=== PATIENT | male | born 1975 | race Caucasian/White ===

== ENCOUNTER → 2017-06-18 | Outpatient (CLI) | payer OTHER ==
[~2017-06-18] VITALS: Ht 195.6 cm; Wt 140.6 kg
[~2017-06-18] MED LIST: ADDERALL 10 MG10 MG PO; CRESTOR10 MG PO; DEPO-TESTO200 MG/1 M IM; ZESTORETIC 20-1 EAC3 PO
--- NOTE | ~2017-06-18 | HPC ---
[facility] [place] [address] PAIN MANAGEMENT CONSULTATION Name: HAYDEE REA Room #: [facility] Laya.#: [id number] Admission: 06/18/17 Attend Phys: Theo Garcia DO Discharge: Date of : 79 Report #: [id number] THIS REPORT FOR: //name// CC: [facility] physician/PCP Theo Garcia The patient is a 42-year-old gentleman typically treated for symptomatic lumbar radiculopathy. Last seen in pain clinic back in [facility] on 03/10/2017. The patient has actually had 3 lumbar epidural injections in February, March and April, all with good incremental improvement, in fact the first injection gave nearly 100% relief, but pain continued to recur. Last injection afforded 75% relief (05/06/2017) and pain has recurred again is in the right low back, posterior leg down to the toe. Classic L5 distribution. 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 The patient tentatively has a surgery scheduled with Dr. August Shields on 07/31/2017 for decompressive laminectomy at L5-S1. He returns to the pain clinic today ostensibly for lumbar epidural injection. He is planning on a golf weekend with clients. He states he tried to play golf last week and only got around 6 holes before pain became problematic. Rates the pain of 5 on VAS at present. PHYSICAL EXAMINATION: Shows 42-year-old gentleman robust build 195 cm tall, 140 kg, BMI 36.8 kilograms per meter squared. Blood pressure 143/89, pulse 100, respirations 20. Rises from chair using armrest. Gait is tandem, but has some subjective pain in the right leg. Slight decreased plantar flexion. Positive straight leg raise on the right. Skin integument is intact. ASSESSMENT: Symptomatic lumbar radiculopathy in a gentleman, who to his credit, it is loathe to use opiate analgesics. He has continued with [id number] Aleve, takes up to four at a time. Today, we talked about appropriate use of nonsteroidal anti-inflammatory agents, he can take 2400 mg ibuprofen or 1000 mg of naproxen sodium, but not both. Suggest he discontinued those agents 4-7 days prior to surgery. Unfortunately, given the fact that he has had 3 injections in the past 4 months, I really do not think he warrants further interventional therapy. I actually appointment today with some of the misunderstanding. I told the patient that we will send him today with hopefully nominal charges being generated. I will be happy to see him as an inpatient after surgery if required. <ELECTRONICALLY SIGNED> By: Theo Garcia DO 06/19/17 0705 [id number] 0900 Theo Garcia DO /nt
[2017-06-18 13:22] VITALS: BP 143/89
== END ==
LOC: PAIN 07:09
DX: M54.16 Radiculopathy, lumbar region (principal)